=== PATIENT | female | born 1970 | race Caucasian/White ===

== ENCOUNTER 2019-02-21 22:36 | Emergency (ER) | payer OTHER ==
[~2019-02-21] VITALS: Ht 175.3 cm; Wt 61.2 kg
--- NOTE | 2019-02-21 22:50 | NUR ---
ED Nurse Note: pt walked in to ED for C/O pain to left ribcage area. pt states she fell while waking on the street about 10 days ago. pt is alert x 4
[2019-02-21 22:53] VITALS: BP 140/91
--- NOTE | 2019-02-21 22:54 | Emergency Room Report ---
History of Present Illness General Chief Complaint: Multiple Trauma/Fall Source: Patient Present Illness HPI Patient presents with complaints of left-sided rib cage pain Reports that 10 days ago she had a trip and fall to her left side she has been having pain there since then And as it persisted she was concerned and came to the ER Pain is worse with deep inspiration or touch denies any head injury denies any neck pain Denies any focal weakness Pain is 8 out of 10 Allergies: Coded Allergies: No Known Allergies (Unverified , 02/21/19) Patient History Past Medical History: see triage record Now: No Reviewed Nursing Documentation: PMH: Agreed; PSxH: Agreed Review of Systems All Other Systems: negative except mentioned in HPI Physical Exam 97% on RA pulse ox Sp02 EP Interpretation: reviewed, normal General Appearance: well appearing Head: normocephalic, atraumatic Eyes: bilateral eye PERRL, bilateral eye EOMI ENT: normal ENT inspection, EOM grossly intact Neck: full range of motion, supple Respiratory: lungs clear, no respiratory distress, no retraction Cardiovascular #1: regular rate, rhythm Gastrointestinal: non tender, soft Musculoskeletal: tender - Tender on palpation along the left mid axillary rib cage diffusely no obvious ecchymosis no flail chest Neurologic: alert, oriented, oriented x3 Skin: no rash - No bruising Lymphatic: no adenopathy Medical Decision Making Diagnostic Impression: Primary Impression: Multiple rib fractures ER Course Given the patient's history and presentation multiple differentials and consideration including but not limited to fractures, contusion, pneumothorax Patient's CT imaging reveals multiple rib fractures Nondisplaced On repeat evaluation patient continues not to show any signs of flail chest saturations are appropriate Injury was over 10 days Old without any signs of hemothorax At this time patient will have continued outpatient evaluation is notified of the significant findings and requires close outpatient follow-up CT/MRI/US Diagnostic Results CT/MRI/US Diagnostic Results : Impression CT chestAcute nondisplaced fractures of the left third, fourth, fifth, sixth, and seventh ribs. No pneumothorax or pleural effusion. Focal linear atelectasis in the right middle lobe. Emphysematous disease in the upper lungs bilaterally. Status: improved Disposition: HOME, SELF-CARE Condition: Improved Scripts Hydrocodone Bit/Acetaminophen 5-325* (NORCO 5-325*) 1 Each Tablet 1 TAB ORAL Q6H PRN for For Pain, #12 TAB 0 Refills Prov: Daniel Crowley DO 02/22/19 Ibuprofen* (MOTRIN*) 600 Mg Tablet 600 MG ORAL Q8H PRN for For Pain, #20 TAB 0 Refills Prov: Daniel Crowley DO 02/22/19 Additional Instructions: Patient is provided with the discharge instructions notified to follow up with primary doctor in the next 2-3 days otherwise return to the er with any worsening symptoms. Please note that this report is being documented using [employer] technology. This can lead to erroneous entry secondary to incorrect interpretation by the dictating instrument. Daniel Crowley DO Feb 21, 2019 22:54
[2019-02-21] MEDS ORDERED: Ketorolac 60mg Inj IM ONE (23:00)
--- NOTE | 2019-02-21 23:05 | NUR ---
ED Nurse Note: pt went to CT
--- NOTE | 2019-02-21 23:18 | NUR ---
ED Nurse Note: back from CT
--- NOTE | 2019-02-21 23:36 | NUR ---
ED Nurse Note: pt in bed resting, no acute distress is noted.
--- NOTE | 2019-02-22 00:29 | Diagnostic Imaging Report ---
Indication: Chest pain Technique: Continuous helical transaxial imaging of the chest was obtained from the thoracic inlet to the upper abdomen. No intravenous contrast was administered. Coronal 2-D reformats were also obtained. Total Dose length Product (DLP): 323.[address] Dose Index Volume (CTDIvol): 6.9 mGy Comparison: none Findings: Acute fractures of the left anterolateral fourth, fifth, sixth, seventh ribs demonstrated. There is no pneumothorax. There is no hematoma or blood within the pleural space. Lungs are essentially clear. There is minimal atelectasis in the anterior aspects of both lung bases. No mediastinal fluid identified. The visualized part of the upper abdomen is unremarkable. There is some minimal calcification of aorta. Vertebral body heights and configuration appear normal. IMPRESSION: Multiple rib fractures on the left. No associated pneumothorax or other deeper injury. [facility] has communicated the preliminary results to the Emergency Department. Their findings are largely concordant with this report. The CT scanner at [facility] is accredited by the [employer] and the scans are performed using dose optimization techniques as appropriate to a performed exam including Automatic Exposure control.
[2019-02-22] MEDS ORDERED: IBUPROFEN600 MG ORAL (00:43)
[2019-02-22] MEDS ORDERED: NORCO 5-325 TA1 EACH ORAL (00:43)
[2019-02-22] MEDS ORDERED: HYDROcodone/Acetamin 10/325 tab ORAL ONE (00:45)
[2019-02-22 00:50] VITALS: BP 132/88
--- NOTE | 2019-02-22 00:50 | NUR ---
ER DISCHARGE NOTE: Patient is cleared to be discharged per ERMD, pt is aox4, on room air, with stable vital signs. pt was given dc and prescription instructions, pt was able to verbalize understanding, pt id band removed without complications. pt is able to ambulate with steady gait. pt took all belongings.
== END 2019-02-22 00:50 | disposition home or self-care (01) ==
LOC: EMR 23:00
DX: S22.42XA Multiple fractures of ribs, left side, initial encounter for closed fracture (principal); W01.0XXA Fall on same level from slipping, tripping and stumbling without subsequent striking against object, initial encounter; Y92.9 Unspecified place or not applicable
CPT/HCPCS: 71250; 96372; Z7502; 99284

== ENCOUNTER 2020-03-14 15:48 | Emergency (ER) | payer OTHER ==
[~2020-03-14] VITALS: Ht 175.3 cm; Wt 59.0 kg
[~2020-03-14 15:48] MED LIST: IBUPROFEN600 MG ORAL; NORCO 5-325 TA1 EACH ORAL
[2020-03-14 16:03] VITALS: BP 113/65
--- NOTE | 2020-03-14 16:08 | NUR ---
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 pt previously fractured ribs 3-7 due to similar situation. Patient walked in with steady gait, AAOX4, VSS at this time.
--- NOTE | 2020-03-14 16:09 | NUR ---
ED Nurse Note: patient was taken to CT via wheelchair
--- NOTE | 2020-03-14 16:25 | NUR ---
ED Nurse Note: patient is back, NAD noted
[2020-03-14] MEDS ORDERED: Ketorolac 30mg Inj IM ONE (16:30)
--- NOTE | 2020-03-14 16:44 | Diagnostic Imaging Report ---
Clinical Indication: Chest pain, status post fall Technique: Spiral acquisitions obtained through the chest. No IV contrast utilized, reason not stated. Multiplanar reconstructions generated. Total dose length product 144 mGycm. CTDIvol(s) 02/21/2019 mGy. Dose reduction achieved using automated exposure control Comparison: 02/21/2019 Findings: Previously demonstrated acute left rib fractures have healed without significant deformity. There is an old healed fracture deformity of the lateral left ninth rib. No acute rib or other fractures are evident. No evidence of retrosternal hematoma The lungs demonstrate very mild posterior dependent ectatic changes. There are some linear atelectatic changes at the left lung base as well. A bulla is seen in the medial periphery of the left upper lobe, also evident previously. No infiltrates, effusion, or congestion. The heart size is normal. The esophagus is unremarkable. No mediastinal or hilar mass or adenopathy. Unremarkable thoracic aorta and pulmonary arteries. No axillary or chest wall mass or adenopathy. The included thyroid is unremarkable. The included upper abdominal anatomy is unremarkable. Impression: No evidence of acute bony or significant soft tissue trauma Minimal atelectatic changes Minimal COPD changes The CT scanner at [facility] is accredited by the [employer] and the scans are performed using protocols designed to limit radiation exposure to as low as reasonably achievable to attain images of sufficient resolution adequate for diagnostic evaluation.
--- NOTE | 2020-03-14 16:46 | Emergency Room Report ---
History of Present Illness General Chief Complaint: Multiple Trauma/Fall Source: Patient Present Illness HPI 50-year-old female with no significant history here complaining of left lower chest pain status post fall x2 days. Patient reports that last year around the same time she had rib fracture in the same location and feels like she broke her ribs again. Denies any head injury loss of consciousness. Has not taken medication for symptom relief. Denies any difficulty breathing. Sitting comfortably with stable vital signs. Denies abdominal pain, nausea or vomiting. No ecchymosis noted. 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 Patient History Past Medical History: unable to obtain Past Surgical History: none Pertinent Family History: none Now: No Immunizations: UTD Reviewed Nursing Documentation: PMH: Agreed; PSxH: Agreed Nursing Documentation-PMH Past Medical History: No History, Except For Review of Systems All Other Systems: negative except mentioned in HPI Physical Exam Vital Signs Date Time Temp Pulse Resp B/P (MAP) Pulse Ox O2 Delivery O2 Flow Rate FiO2 03/14/20 15:50 97.9 61 16 113/65 (81) 100 Room Air Sp02 EP Interpretation: reviewed, normal General Appearance: normal inspection, alert, no apparent distress, GCS 15 Head: normocephalic, atraumatic Eyes: normal eye exam, PERRL, EOMI, lids + conjunctiva normal, no hyphema, no racoon eyes ENT: normal ENT inspection, TMs + canals normal, oropharynx normal, no chavez signs Neck: trach midline, no bony tend, full range of motion without pain Respiratory: effort normal, no retractions, clear to auscultation, chest symmetrical, palpation of chest normal, speaking in full sentences Cardiovascular: regular rate, rhythm, no JVD Cardiovascular #2: 2+ radial (R), 2+ radial (L), 2+ dorsalis pedis (R), 2+ dorsalis pedis (L) Gastrointestinal: normal inspection, non-tender, non-distended, no rebound/guarding, normal bowel sounds Musculoskeletal: gait & station normal, non-tender, other - No bony tenderness noted Skin: no rash Neurologic: oriented x3, sensory intact, motor strength/tone normal, normal speech Psychiatric: normal inspection, memory normal, mood normal, no suicidal/homicidal ideation Medical Decision Making PA Attestation ALL Diagnosis and treatment plan reviewed and discussed with my supervising physician Dr. Jarvis Diagnostic Impression: Primary Impression: Rib contusion ER Course 50-year-old female with no significant history here complaining of left lower chest pain status post fall x2 days. Patient reports that last year around the same time she had rib fracture in the same location and feels like she broke her ribs again. Denies any head injury loss of consciousness. Has not taken medication for symptom relief. Denies any difficulty breathing. Sitting comfortably with stable vital signs. Denies abdominal pain, nausea or vomiting. No ecchymosis noted. Ddx considered but are not limited to: Pneumothorax, rib fracture, rib contusion Vital signs: are WNL, pt. is afebrile H&PE are most consistent with rib contusion ORDERS: CT chest no contrast, Motrin Robaxin ED INTERVENTIONS: Toradol IM DISCHARGE: At this time pt. is stable for d/c to home. Will provide printed patient care instructions, and any necessary prescriptions. Care plan and follow up instructions have been discussed with the patient prior to discharge.take medication as directed, follow primary care provider, worsening symptoms return to emergency room CT/MRI/US Diagnostic Results CT/MRI/US Diagnostic Results : Imaging Test Ordered: CT chest no contrast Impression No rib fracture noted Last Vital Signs Date Time Temp Pulse Resp B/P (MAP) Pulse Ox O2 Delivery O2 Flow Rate FiO2 03/14/20 16:03 61 16 Room Air 03/14/20 16:03 97.9 113/65 100 Disposition: HOME, SELF-CARE Condition: Stable Scripts Methocarbamol* (ROBAXIN-500*) 500 Mg Tablet 500 MG ORAL TID PRN for For Pain, #15 TAB 0 Refills Prov: Deisi Augilar 03/14/20 Ibuprofen (Ibuprofen) 800 Mg Tablet 800 MG PO TID, #30 TAB Prov: Deisi Aguilar 03/14/20 Referrals: [facility],REFERRING (PCP) Patient Instructions: Rib Contusion Additional Instructions: Take medication as directed, follow with primary care provider, if worsening symptoms return to the emergency room Deisi Aguilar Mar 14, 2020 16:46
[2020-03-14] MEDS ORDERED: ROBAXIN-500MG ORAL (16:49)
[2020-03-14] MEDS ORDERED: IBUPROFEN800 M1 PO (16:49)
[2020-03-14 16:53] VITALS: BP 113/65
--- NOTE | 2020-03-14 16:54 | NUR ---
ED Nurse Note: Pt cleared by health care Provider for discharge. DC instructions/prescription was given and explained to pt and verbalized understanding of teachings. All medical deviecs such as ID band removed. Pt is AAO x4, ambulatory and left with all personal belongings.
== END 2020-03-14 16:54 | disposition home or self-care (01) ==
LOC: EMR 16:00
DX: S20.212A Contusion of left front wall of thorax, initial encounter (principal); W01.0XXA Fall on same level from slipping, tripping and stumbling without subsequent striking against object, initial encounter; Y93.9 Activity, unspecified; Y92.9 Unspecified place or not applicable
CPT/HCPCS: 71250; 96372; J1885; Z7502; 99284